=== PATIENT | female | born 1935 | race Caucasian/White ===

== ENCOUNTER → 2019-07-24 | Outpatient (CLI) | payer OTHER ==
[~2019-07-24] MED LIST: AGGRENOX CAPSU1 EACH PO; ALDACTONE25 MG; ASPIRIN325 PO; BENICAR; BENICAR20 MG; COZAAR 50 MG TA50 M2 PO; DIOVAN40 MG PO; DITROPAN XL10 M1 PO; EFFIENT10 MG; EFFIENT10 MG PO; FUROSEMIDE 20 M20 M1 PO; FUROSEMIDE 40 M40 M1; GLUCOPHAGE XR500 MG PO; GLUCOPHAGE500 MG; KLOR-CON 1010 MEQ PO; LINOLEIC ACID PO; LINZESS145 MCG PO; LIVALO4 MG; MOBIC15 MG PO; NITROGLYCERIN0.4 MG; NORVASC2.5 MG PO; OMEPRAZOLE20 M2 PO; OMEPRAZOLE40 MG PO; ONGLYZA5 MG; PLAVIX 75 MG TA75 MG PO; PRAVACHOL40 MG PO; RANEXA500 MG PO; SIMVASTATIN40 MG PO; SPIRONOLACTONE25 M1 PO; TOPROL XL50 MG PO; VYTORIN 10-101 EACH PO; VYTORIN 10-201 EACH PO; ZETIA10 MG PO
== END ==
LOC: SJCVCIMAG 07-23 08:24
DX: I65.23 Occlusion and stenosis of bilateral carotid arteries (principal); R94.31 Abnormal electrocardiogram [ECG] [EKG]; I25.10 Atherosclerotic heart disease of native coronary artery without angina pectoris; E78.00 Pure hypercholesterolemia, unspecified; I12.9 Hypertensive chronic kidney disease with stage 1 through stage 4 chronic kidney disease, or unspecified chronic kidney disease; E11.22 Type 2 diabetes mellitus with diabetic chronic kidney disease; N18.9 Chronic kidney disease, unspecified; E78.5 Hyperlipidemia, unspecified; Z86.73 Personal history of transient ischemic attack (TIA), and cerebral infarction without residual deficits; Z79.84 Long term (current) use of oral hypoglycemic drugs; Z79.82 Long term (current) use of aspirin; Z79.899 Other long term (current) drug therapy; Z82.49 Family history of ischemic heart disease and other diseases of the circulatory system; Z95.820 Peripheral vascular angioplasty status with implants and grafts

== ENCOUNTER → 2019-07-30 | Outpatient (CLI) | payer OTHER | LOC: SJCVCIMAG 09:43 | DX: I25.10 Atherosclerotic heart disease of native coronary artery without angina pectoris (principal); I49.3 Ventricular premature depolarization; I25.5 Ischemic cardiomyopathy; E11.22 Type 2 diabetes mellitus with diabetic chronic kidney disease; N18.9 Chronic kidney disease, unspecified; I10 Essential (primary) hypertension; E78.5 Hyperlipidemia, unspecified; Z95.1 Presence of aortocoronary bypass graft; Z79.899 Other long term (current) drug therapy ==

== ENCOUNTER → 2020-04-15 | Outpatient (CLI) | payer OTHER | LOC: SJCVC 14:35 | PROVIDERS: ATTEND Internal Medicine Cardiovascular Disease | DX: R94.31 Abnormal electrocardiogram [ECG] [EKG] (principal); I25.10 Atherosclerotic heart disease of native coronary artery without angina pectoris; I10 Essential (primary) hypertension; E78.00 Pure hypercholesterolemia, unspecified; I65.23 Occlusion and stenosis of bilateral carotid arteries; E11.22 Type 2 diabetes mellitus with diabetic chronic kidney disease; I12.9 Hypertensive chronic kidney disease with stage 1 through stage 4 chronic kidney disease, or unspecified chronic kidney disease; N18.9 Chronic kidney disease, unspecified; E78.5 Hyperlipidemia, unspecified; I25.5 Ischemic cardiomyopathy; Z95.1 Presence of aortocoronary bypass graft; Z86.73 Personal history of transient ischemic attack (TIA), and cerebral infarction without residual deficits; Z88.0 Allergy status to penicillin; Z88.5 Allergy status to narcotic agent; Z88.8 Allergy status to other drugs, medicaments and biological substances ==

== ENCOUNTER → 2020-12-13 | Outpatient (CLI) | payer OTHER | LOC: SJCVCIMAG 11:14 | PROVIDERS: ATTEND Internal Medicine Cardiovascular Disease | DX: I65.23 Occlusion and stenosis of bilateral carotid arteries (principal); E11.9 Type 2 diabetes mellitus without complications; E78.00 Pure hypercholesterolemia, unspecified; Z98.890 Other specified postprocedural states; Z95.828 Presence of other vascular implants and grafts ==